=== PATIENT | male | born 1985 | race Caucasian/White ===

== ENCOUNTER 2022-10-09 16:20 | Inpatient (IN) | payer BC ==
[~2022-10-09] VITALS: Ht 152.4 cm; Wt 103.9 kg
[~2022-10-09 16:20] MED LIST: CLE150 PO; COR25 PO; DAPA5TAB PO; FURO-150 PO; LIP10 PO; SACU1TAB PO
[2022-10-09 16:23] VITALS: BP_SYST 162
[2022-10-09] MEDS ORDERED: FUROSEMIDE 100 MG/10 ML VIAL IVP ONE (16:45)
[2022-10-09 17:29] LABS: BASOPHILS # (AUTO) 0.1 K/uL (0.0-0.2); BASOPHILS % (AUTO) 0.6 % (0.0-2.0); EOSINOPHILS # (AUTO) 0.2 K/uL (0.0-0.4); EOSINOPHILS % (AUTO) 1.7 % (0.0-4.0); HEMATOCRIT 45.4 % (36-54); HEMOGLOBIN 15.3 g/dL (14.0-18.0); LYMPHOCYTES % (AUTO) 22.8 % (20.5-51.5); MEAN CORPUSCULAR HEMOGLOBIN 31 pg (27-31); MEAN CORPUSCULAR HGB CONC 34 % (32-36); MEAN CORPUSCULAR VOLUME 92 fL (79.0-98.0); MONOCYTES # (AUTO) 0.6 K/uL (0.0-1.0); NEUTROPHILS % (AUTO) 67.9 % (40.0-70.0); PLATELET COUNT (AUTO) 247 K/uL (130-430); RED BLOOD CELL COUNT(AUTO) 4.93 MIL/uL (4.2-6.2); RED CELL DISTRIBUTION WIDTH 14.6 % (9.0-15.0); WHITE BLOOD COUNT (AUTO) 8.9 K/uL (4.8-10.8)
[2022-10-09] MEDS ORDERED: FUROSEMIDE 100 MG/10 ML VIAL ONE (17:33)
[2022-10-09 17:51] LABS: ANION GAP 7 (5-15); CHLORIDE 103 mmol/L (98-107); GFR AFRICAN AMERICAN 88 mL/min (>90); GLUCOSE 83 mg/dL (70-99); UREA NITROGEN, BLOOD 17 mg/dL (8-21)
[2022-10-09 18:12] LABS: ALANINE AMINOTRANSFERASE 31 U/L (12-78); ALBUMIN 3.4 g/dL (3.4-4.8); ASPARTATE AMINOTRANSFERASE 33 U/L (10-37)
[2022-10-09] MEDS ORDERED: ENOXAPARIN SODIUM 100 MG/ML SYRINGE SUBCUT ONE (18:30)
[2022-10-09] MEDS ORDERED: ENOXAPARIN SODIUM 100 MG/ML SYRINGE ONE (20:56)
[2022-10-09] MEDS ORDERED: KETOROLAC TROMETHAMINE 30 MG VIAL IVP ONE (23:00)
[2022-10-09] MEDS ORDERED: ACETAMINOPHEN 500 MG TABLET PO ONE (23:00)
[2022-10-10] MEDS ORDERED: NITROGLYCERIN 1 INCH (GM) OINT. TP ONE (03:45)
[2022-10-10] MEDS ORDERED: FUROSEMIDE 40 MG/4 ML VIAL IVP ONE (03:45)
[2022-10-10] MEDS ORDERED: NITROGLYCERIN 0.4 MG TAB.SUBL SL ONE (03:45)
[2022-10-10] MEDS ORDERED: LORazepam 2 MG/ML VIAL IVP ONE ×2 (03:45→04:00)
[2022-10-10 05:08] LABS: BASOPHILS # (AUTO) 0.1 K/uL (0.0-0.2); BASOPHILS % (AUTO) 0.8 % (0.0-2.0); EOSINOPHILS # (AUTO) 0.2 K/uL (0.0-0.4); EOSINOPHILS % (AUTO) 1.8 % (0.0-4.0); HEMATOCRIT 46.2 % (36-54); HEMOGLOBIN 15.6 g/dL (14.0-18.0); LYMPHOCYTES # (AUTO) 2.8 K/uL (1.0-5.5); LYMPHOCYTES % (AUTO) 30.7 % (20.5-51.5); MEAN CORPUSCULAR HEMOGLOBIN 31 pg (27-31); MEAN CORPUSCULAR HGB CONC 34 % (32-36); MEAN CORPUSCULAR VOLUME 91 fL (79.0-98.0); MONOCYTES # (AUTO) 0.7 K/uL (0.0-1.0); MONOCYTES % (AUTO) 7.8 % (1.7-9.3); NEUTROPHILS # (AUTO) 5.3 K/uL (1.8-7.7); NEUTROPHILS % (AUTO) 58.9 % (40.0-70.0); PLATELET COUNT (AUTO) 241 K/uL (130-430); RED BLOOD CELL COUNT(AUTO) 5.08 MIL/uL (4.2-6.2); RED CELL DISTRIBUTION WIDTH 14.5 % (9.0-15.0)
[2022-10-10 05:23] LABS: CALCIUM 7.7 mg/dL (8.4-11.0); CREATININE 1.23 mg/dL (0.55-1.30)
[2022-10-10 05:35] LABS: BARBITURATE, URINE NEGATIVE (NEG <=200); BENZODIAZEPINE, URINE NEGATIVE (NEG <=150); CANNABINOID, URINE NEGATIVE (NEG <=50); COCAINE, URINE NEGATIVE (NEG <=150); METHAMPHETAMINES SCREEN,URINE NEGATIVE (NEG <=500); OPIATE, URINE NEGATIVE (NEG <=100); PHENCYCLIDINE SCREEN,URINE NEGATIVE (NEG <=25); UR TRICYCLIC ANTIDEPRESSANTS NEGATIVE (NEG <=300); URINE AMPHETAMINE NEGATIVE (NEG <=500); URINE METHADONE NEGATIVE (NEG <=200); URINE OXYCODONE SCREEN NEGATIVE (NEG <=100); URINE PROPOXYPHENE SCREEN NEGATIVE (NEG <=300)
[2022-10-10] MEDS: CARVEDILOL 25 MG TABLET (COREG) PO SCH ×2 (09:46→20:13)
[2022-10-10] MEDS: SACUBITRIL/VALSARTAN 24 MG-26 MG 1 TABLET PO SCH ×2 (09:47→21:01)
[2022-10-10] MEDS: APIXABAN 2.5 MG TABLET PO SCH ×2 (09:55→20:13)
[2022-10-10] MEDS ORDERED: EMPAGLIFLOZIN 10 MG TABLET PO ONE (10:00)
[2022-10-10 10:02] VITALS: BP_SYST 138
[2022-10-10 10:16] VITALS: BP_SYST 138
[2022-10-10 12:55] VITALS: BP_SYST 136
[2022-10-10 16:33] VITALS: BP_SYST 137
[2022-10-10 19:43] VITALS: BP_SYST 146
[2022-10-10] MEDS ORDERED: traMADol HCL HCL 50 MG TABLET (ULTRAM) PO PRN (21:00)
[2022-10-10] MEDS: TEMAZEPAM 7.5 MG CAPSULE PO PRN (21:01)
[2022-10-11 06:17] LABS: BASOPHILS # (AUTO) 0.1 K/uL (0.0-0.2); BASOPHILS % (AUTO) 0.8 % (0.0-2.0); EOSINOPHILS # (AUTO) 0.4 K/uL (0.0-0.4); EOSINOPHILS % (AUTO) 4.3 % (0.0-4.0); HEMATOCRIT 45.2 % (36-54); HEMOGLOBIN 15.1 g/dL (14.0-18.0); LYMPHOCYTES % (AUTO) 32.4 % (20.5-51.5); MEAN CORPUSCULAR HEMOGLOBIN 31 pg (27-31); MEAN CORPUSCULAR HGB CONC 34 % (32-36); MEAN CORPUSCULAR VOLUME 92 fL (79.0-98.0); MONOCYTES # (AUTO) 0.6 K/uL (0.0-1.0); MONOCYTES % (AUTO) 6.7 % (1.7-9.3); NEUTROPHILS # (AUTO) 5.2 K/uL (1.8-7.7); NEUTROPHILS % (AUTO) 55.8 % (40.0-70.0); PLATELET COUNT (AUTO) 248 K/uL (130-430); RED BLOOD CELL COUNT(AUTO) 4.93 MIL/uL (4.2-6.2); RED CELL DISTRIBUTION WIDTH 14.1 % (9.0-15.0); WHITE BLOOD COUNT (AUTO) 9.3 K/uL (4.8-10.8)
[2022-10-11 06:44] LABS: ALBUMIN 2.6 g/dL (3.4-4.8); CALCIUM 7.2 mg/dL (8.4-11.0); TOTAL BILIRUBIN 0.6 mg/dL (0.0-1.0)
[2022-10-11 08:00] VITALS: BP_SYST 133
[2022-10-11] MEDS: SACUBITRIL/VALSARTAN 24 MG-26 MG 1 TABLET PO SCH ×2 (08:34→20:48)
[2022-10-11] MEDS: EMPAGLIFLOZIN 10 MG TABLET PO SCH (08:35)
[2022-10-11] MEDS: APIXABAN 2.5 MG TABLET PO SCH ×2 (08:37→20:58)
[2022-10-11] MEDS ORDERED: CARVEDILOL 12.5 MG TABLET (COREG) PO ONE (08:45)
[2022-10-11] MEDS ORDERED: FUROSEMIDE 20 MG/2 ML VIAL IVP SCH (09:00)
[2022-10-11 11:15] VITALS: BP_SYST 126
[2022-10-11 16:11] VITALS: BP_SYST 131
[2022-10-11] MEDS ORDERED: LORazepam 1 MG TABLET PO PRN (19:00)
[2022-10-11] MEDS: TEMAZEPAM 7.5 MG CAPSULE PO PRN (20:47)
[2022-10-11] MEDS: CARVEDILOL 12.5 MG TABLET (COREG) PO SCH (20:48)
[2022-10-12 00:44] VITALS: BP_SYST 135
[2022-10-12 03:11] VITALS: BP_SYST 156
[2022-10-12] MEDS ORDERED: FUROSEMIDE 20 MG/2 ML VIAL IVP ONE (03:15)
[2022-10-12 08:00] VITALS: BP_SYST 156
[2022-10-12] MEDS: EMPAGLIFLOZIN 10 MG TABLET PO SCH ×2 (09:00→10:29)
[2022-10-12] MEDS ORDERED: SACUBITRIL/VALSARTAN 24 MG-26 MG 1 TABLET PO SCH (09:00)
[2022-10-12] MEDS ORDERED: FUROSEMIDE 40 MG TABLET PO SCH (09:00)
[2022-10-12] MEDS: CARVEDILOL 12.5 MG TABLET (COREG) PO SCH (10:29)
[2022-10-12] MEDS: APIXABAN 2.5 MG TABLET PO SCH (10:33)
[2022-10-12] MEDS ORDERED: APIX2.5T PO (11:08)
[2022-10-12 11:33] VITALS: BP_SYST 150
== END 2022-10-12 13:00 | disposition home or self-care (01) | DRG 205 ==
LOC: SED 16:20 → STU 10-10 04:24 → SMU 10-12 11:49
PROVIDERS: ADMIT Internal Medicine; ATTEND Internal Medicine
DX: I42.0 Dilated cardiomyopathy (principal); I21.A1 Myocardial infarction type 2; R65.10 Systemic inflammatory response syndrome (SIRS) of non-infectious origin without acute organ dysfunction; E44.1 Mild protein-calorie malnutrition; I50.9 Heart failure, unspecified; Z68.44 Body mass index [BMI] 60.0-69.9, adult; I48.20 Chronic atrial fibrillation, unspecified; Z79.01 Long term (current) use of anticoagulants; Z59.00 Homelessness unspecified; Z79.899 Other long term (current) drug therapy; Z87.891 Personal history of nicotine dependence; Z91.148 Patient's other noncompliance with medication regimen for other reason
CPT/HCPCS: 36415; 71045; 80048; 80053; 80061; 80307; 82550; 83880; 84443; 84484; 85025; 85379; 93005; 96372; 96374; 96375; 96376; 99285; G0378; J1650; J1885; J1940; J2060